=== PATIENT | male | born 1985 ===

== ENCOUNTER 2021-07-22 22:54 | Inpatient (IN) ==
[2021-07-22] MEDS ORDERED: Isovue-370 500 ML BOTTLE IVP ONE (23:13)
[2021-07-22] MEDS ORDERED: 0.9 % Sodium Chloride 1,000 ML IV ONE (23:13)
[2021-07-22] MEDS ORDERED: Ondansetron 4 MG/2 ML VIAL IVP ONE (23:13)
[2021-07-23 00:32] LABS: Alanine Aminotransferase 976 Units/L (7-52); Albumin 4.3 g/dL (3.5-5.7); Albumin/Globulin Ratio 1.4 (1.1-2.2); Alkaline Phosphatase 159 Units/L (34-104); Amylase 34 Units/L (29-103); Aspartate Amino Transferase 704 Units/L (13-39); BUN/Creatinine Ratio 11 (6-26); Bilirubin,Total 3.4 mg/dL (0.3-1.0); Blood Urea Nitrogen 10 mg/dL (6-20); Calcium 9.6 mg/dL (8.6-10.3); Carbon Dioxide 31 mEq/L (23-29); Chloride 101 mEq/L (98-107); Glucose 114 mg/dL (70-105); Lipase 25 Units/L (11-82); Osmolality,Calculated 286 (280-300); Potassium 3.4 mEq/L (3.5-5.1); Sodium 138 mEq/L (136-145); Total Protein 7.3 g/dL (6.4-8.9); eGFR For African Americans > 60 (> 60); eGFR For Non-African Americans > 60 (> 60)
[2021-07-23 00:33] LABS: Basophils % 1.2 %; Eosinophils # 0.1 K/mcL (0.0-0.6); Eosinophils % 2.1 %; Hematocrit 46.4 % (37.5-50.1); Hemoglobin 15.8 g/dL (12.9-16.9); Immature Granulocytes % 0.3 % (0-4); Lymphocytes # 0.8 K/mcL (0.6-4.6); Lymphocytes % 22.4 %; Mean Corpuscular HGB Conc 34.1 g/dL (31.6-35.5); Mean Corpuscular Hemoglobin 28.8 pg (28.0-33.3); Mean Corpuscular Volume 84.7 fL (83.0-100.0); Mean Platelet Volume 12.5 fL (9.4-12.4); Monocytes # 0.3 K/mcL (0.0-1.3); Monocytes % 9.7 %; Neutrophils # 2.2 K/mcL (1.6-8.9); Platelet Count 138 K/mcL (140-400); Red Blood Count 5.48 M/mcL (4.19-5.50); Red Cell Distribution Width 12.6 % (11.5-14.5); Segmented Neutrophils % 64.3 %; White Blood Count 3.4 K/mcL (4.3-11.1)
[2021-07-23] MEDS ORDERED: Piperacillin/Tazobactam 3.375 GM in 0.9 % Sodium Chloride Mini Bag 100 ML IVP ONE (01:28)
[2021-07-23] MEDS ORDERED: Ketorolac 30 MG/ML VIAL IVP ONE (01:28)
[2021-07-23 01:40] LABS: Bacteria,Urine Few per hpf (None-Few); Bilirubin,Urine Small (Negative); Blood,Urine Negative (Negative); Clarity,Urine Clear (Clear); Color,Urine Yellow (Yellow); Glucose,Urine (UA) Normal (Normal); Ketones,Urine Negative (Negative); Leukocyte Esterase,Urine Negative (Negative); Nitrite,Urine Negative (Negative); Protein,Urine 30 mg/dL (Neg-Trace); RBC,Urine 0-3 per hpf (0-3); Specific Gravity,Urine > 1.030 (1.010-1.025); Urobilinogen,Urine Normal (Normal); WBC,Urine 0-3 per hpf (0-3)
[2021-07-23 02:35] LABS: INR 1.2
[2021-07-23 02:38] LABS: Activated Partial Thrombo Time 30.9 Seconds (26.0-36.0)
[2021-07-23 03:26] LABS: Acetaminophen < 10 mcg/mL (10-20); Ethanol < 10 mg/dL (Less than 10); Salicylate < 2.5 mg/dL (15.0-30.0)
[2021-07-23] MEDS ORDERED: Melatonin 3 MG TABLET PO PRN (03:44)
[2021-07-23] MEDS ORDERED: Ondansetron 4 MG/2 ML VIAL IVP PRN (03:44)
[2021-07-23] MEDS ORDERED: Naloxone 0.4 MG/ML INJ IVP PRN (03:44)
[2021-07-23] MEDS ORDERED: Acetaminophen 325 MG TABLET PO PRN (03:44)
[2021-07-23] MEDS ORDERED: Dextrose 4 GM Chewable Tablets PO PRN ×2 (03:47)
[2021-07-23] MEDS ORDERED: Saliva Stimulant 44.3ml BOTTLE PO PRN (03:47)
[2021-07-23] MEDS ORDERED: D5% in Water 1,000 ML IVC PRN (03:47)
[2021-07-23] MEDS ORDERED: *HR* Dextrose 50 % in Water (Syg) 50 ML SYRINGE IVP PRN (03:47)
[2021-07-23] MEDS: Ringers Solution, Lactated 1,000 ML IVC SCH ×2 (05:28→19:56)
[2021-07-23 05:35] LABS: Basophils % 1.1 %; Eosinophils # 0.1 K/mcL (0.0-0.6); Hematocrit 43.9 % (37.5-50.1); Immature Granulocytes % 0.4 % (0-4); Lymphocytes # 0.9 K/mcL (0.6-4.6); Lymphocytes % 32.9 %; Mean Corpuscular HGB Conc 34.2 g/dL (31.6-35.5); Mean Corpuscular Hemoglobin 29.5 pg (28.0-33.3); Mean Corpuscular Volume 86.2 fL (83.0-100.0); Mean Platelet Volume 12.7 fL (9.4-12.4); Monocytes # 0.3 K/mcL (0.0-1.3); Monocytes % 9.4 %; Neutrophils # 1.5 K/mcL (1.6-8.9); Platelet Count 124 K/mcL (140-400); Red Blood Count 5.09 M/mcL (4.19-5.50); Red Cell Distribution Width 12.6 % (11.5-14.5); Segmented Neutrophils % 52.2 %; White Blood Count 2.8 K/mcL (4.3-11.1)
[2021-07-23] MEDS ORDERED: *HR* LORazepam 0.5 MG TABLET PO PRN (05:38)
[2021-07-23 05:39] LABS: INR 1.2; Prothrombin Time 12.9 Seconds (9.4-12.1)
[2021-07-23 05:42] LABS: Activated Partial Thrombo Time 34.1 Seconds (26.0-36.0)
[2021-07-23 06:00] LABS: Alanine Aminotransferase 819 Units/L (7-52); Albumin/Globulin Ratio 1.6 (1.1-2.2); Alkaline Phosphatase 155 Units/L (34-104); Aspartate Amino Transferase 485 Units/L (13-39); BUN/Creatinine Ratio 10 (6-26); Bilirubin,Direct 1.9 mg/dL (0.0-0.2); Bilirubin,Indirect 1.2 mg/dL (0.0-1.0); Bilirubin,Total 3.1 mg/dL (0.3-1.0); Blood Urea Nitrogen 10 mg/dL (6-20); Calcium 9.2 mg/dL (8.6-10.3); Carbon Dioxide 30 mEq/L (23-29); Chloride 104 mEq/L (98-107); Chol/HDL Ratio 3.4 (0-4.9); Cholesterol 158 mg/dL (< 200); Globulin 2.5 g/dL (2.4-3.5); Glucose 89 mg/dL (70-105); HDL Cholesterol 46 mg/dL (40-59); LDL Cholesterol,Calculated 95 mg/dL (< 100); Osmolality,Calculated 285 (280-300); Phosphorous 4.4 mg/dL (2.7-4.5); Potassium 3.8 mEq/L (3.5-5.1); Sodium 138 mEq/L (136-145); Total Protein 6.5 g/dL (6.4-8.9); Triglycerides 83 mg/dL (< 150); eGFR For African Americans > 60 (> 60); eGFR For Non-African Americans > 60 (> 60)
[2021-07-23 07:08] LABS: Alanine Aminotransferase 800 Units/L (7-52); Albumin 3.9 g/dL (3.5-5.7); Albumin/Globulin Ratio 1.6 (1.1-2.2); Alkaline Phosphatase 154 Units/L (34-104); Aspartate Amino Transferase 443 Units/L (13-39); BUN/Creatinine Ratio 10 (6-26); Bilirubin,Total 2.6 mg/dL (0.3-1.0); Blood Urea Nitrogen 10 mg/dL (6-20); Carbon Dioxide 30 mEq/L (23-29); Chloride 104 mEq/L (98-107); Globulin 2.4 g/dL (2.4-3.5); Glucose 95 mg/dL (70-105); Osmolality,Calculated 285 (280-300); Potassium 3.8 mEq/L (3.5-5.1); Sodium 138 mEq/L (136-145); Total Protein 6.3 g/dL (6.4-8.9); eGFR For African Americans > 60 (> 60); eGFR For Non-African Americans > 60 (> 60)
[2021-07-23 07:53] LABS: Hepatitis B Surface Antigen Nonreactive (Nonreactive)
[2021-07-23 08:22] LABS: Hepatitis A Antibody IgM Nonreactive (Nonreactive); Hepatitis B Core IgM Nonreactive (Nonreactive); Hepatitis C Virus Antibody Nonreactive (Nonreactive)
[2021-07-23] MEDS: Pantoprazole 40 MG VIAL IVP SCH (10:09)
[2021-07-23] MEDS: Piperacillin/Tazobactam 3.375 GM in 0.9 % Sodium Chloride Mini Bag 100 ML IVPB SCH ×2 (10:09→18:37)
[2021-07-23] MEDS ORDERED: Ibuprofen 600 MG TABLET PO PRN (11:30)
[2021-07-24] MEDS: Piperacillin/Tazobactam 3.375 GM in 0.9 % Sodium Chloride Mini Bag 100 ML IVPB SCH ×3 (00:12→17:34)
[2021-07-24 04:38] LABS: Hemoglobin 14.8 g/dL (12.9-16.9); Immature Granulocytes % 0.3 % (0-4); Lymphocytes % 36.4 %; Mean Corpuscular HGB Conc 32.2 g/dL (31.6-35.5); Mean Corpuscular Hemoglobin 28.4 pg (28.0-33.3); Mean Corpuscular Volume 88.1 fL (83.0-100.0); Mean Platelet Volume 12.8 fL (9.4-12.4); Monocytes % 7.3 %; Platelet Count 119 K/mcL (140-400); Red Blood Count 5.22 M/mcL (4.19-5.50); Red Cell Distribution Width 12.9 % (11.5-14.5); Segmented Neutrophils % 48.6 %; White Blood Count 3.4 K/mcL (4.3-11.1)
[2021-07-24 04:39] LABS: Basophils % 1.2 %; Eosinophils # 0.2 K/mcL (0.0-0.6); Eosinophils % 6.2 %; INR 1.2; Lymphocytes # 1.2 K/mcL (0.6-4.6); Monocytes # 0.3 K/mcL (0.0-1.3); Neutrophils # 1.7 K/mcL (1.6-8.9)
[2021-07-24 05:03] LABS: BUN/Creatinine Ratio 7 (6-26); Blood Urea Nitrogen 6 mg/dL (6-20); Calcium 9.1 mg/dL (8.6-10.3); Carbon Dioxide 24 mEq/L (23-29); Chloride 107 mEq/L (98-107); Glucose 84 mg/dL (70-105); Osmolality,Calculated 283 (280-300); Potassium 3.9 mEq/L (3.5-5.1); Sodium 138 mEq/L (136-145); eGFR For African Americans > 60 (> 60); eGFR For Non-African Americans > 60 (> 60)
[2021-07-24 05:16] LABS: Albumin 3.9 g/dL (3.5-5.7); Albumin/Globulin Ratio 1.6 (1.1-2.2); Bilirubin,Direct 0.3 mg/dL (0.0-0.2); Bilirubin,Indirect 0.7 mg/dL (0.0-1.0); Globulin 2.5 g/dL (2.4-3.5); Total Protein 6.4 g/dL (6.4-8.9)
[2021-07-24] MEDS: Pantoprazole 40 MG VIAL IVP SCH (08:39)
[2021-07-24 10:09] LABS: % Iron Saturation 23 % (20-55); Iron 69 mcg/dL (65-175); Transferrin 210 mg/dL (203-362)
[2021-07-24 10:21] LABS: Ferritin 214 ng/mL (20-250)
[2021-07-24] MEDS: Ringers Solution, Lactated 1,000 ML IVC SCH (12:41)
[2021-07-24] MEDS ORDERED: *HR* Succinylcholine 200 MG/10 ML VIAL IVP ONE (15:01)
[2021-07-24] MEDS ORDERED: Ondansetron 4 MG/2 ML VIAL ONE (15:01)
[2021-07-24] MEDS ORDERED: Lidocaine -MPF 4% 5 ML AMPUL ONE (15:01)
[2021-07-24] MEDS ORDERED: *HR* Midazolam HCl 2 MG/2 ML VIAL ONE (15:02)
[2021-07-24] MEDS ORDERED: *HR* FentaNYL (PF) 100 MCG/2 ML VIAL ONE (15:02)
[2021-07-24] MEDS ORDERED: *HR* Propofol 200 MG/20 ML VIAL IVP ONE (15:02)
[2021-07-24] MEDS ORDERED: Menthol 1 EACH LOZENGE MM ONE (17:15)
[2021-07-25] MEDS: Ringers Solution, Lactated 1,000 ML IVC SCH (01:18)
[2021-07-25] MEDS: Piperacillin/Tazobactam 3.375 GM in 0.9 % Sodium Chloride Mini Bag 100 ML IVPB SCH ×2 (01:24→11:13)
[2021-07-25 03:20] LABS: Basophils % 0.2 %; Hematocrit 41.4 % (37.5-50.1); Hemoglobin 14.1 g/dL (12.9-16.9); Immature Granulocytes % 0.2 % (0-4); Lymphocytes # 0.6 K/mcL (0.6-4.6); Mean Corpuscular HGB Conc 34.1 g/dL (31.6-35.5); Mean Corpuscular Hemoglobin 29.4 pg (28.0-33.3); Mean Corpuscular Volume 86.4 fL (83.0-100.0); Mean Platelet Volume 12.2 fL (9.4-12.4); Monocytes # 0.2 K/mcL (0.0-1.3); Monocytes % 4.3 %; Neutrophils # 4.2 K/mcL (1.6-8.9); Platelet Count 117 K/mcL (140-400); Red Blood Count 4.79 M/mcL (4.19-5.50); Red Cell Distribution Width 12.5 % (11.5-14.5); Segmented Neutrophils % 83.3 %; White Blood Count 5.1 K/mcL (4.3-11.1)
[2021-07-25 03:21] LABS: Alanine Aminotransferase 359 Units/L (7-52); Albumin 3.8 g/dL (3.5-5.7); Albumin/Globulin Ratio 1.5 (1.1-2.2); Alkaline Phosphatase 120 Units/L (34-104); Aspartate Amino Transferase 68 Units/L (13-39); BUN/Creatinine Ratio 7 (6-26); Bilirubin,Direct 0.1 mg/dL (0.0-0.2); Bilirubin,Indirect 0.5 mg/dL (0.0-1.0); Bilirubin,Total 0.6 mg/dL (0.3-1.0); Blood Urea Nitrogen 6 mg/dL (6-20); Carbon Dioxide 26 mEq/L (23-29); Chloride 104 mEq/L (98-107); Globulin 2.5 g/dL (2.4-3.5); Glucose 110 mg/dL (70-105); Osmolality,Calculated 280 (280-300); Potassium 3.9 mEq/L (3.5-5.1); Sodium 136 mEq/L (136-145); Total Protein 6.3 g/dL (6.4-8.9); eGFR For African Americans > 60 (> 60); eGFR For Non-African Americans > 60 (> 60)
[2021-07-25] MEDS ORDERED: *HR* FentaNYL (PF) 100 MCG/2 ML VIAL ONE ×2 (08:28→10:12)
[2021-07-25] MEDS ORDERED: *HR* Midazolam HCl 2 MG/2 ML VIAL ONE (08:29)
[2021-07-25] MEDS ORDERED: *HR* Propofol 200 MG/20 ML VIAL IVP ONE (08:29)
[2021-07-25] MEDS ORDERED: *HR* Rocuronium Bromide 50 MG/5 ML VIAL ONE (08:30)
[2021-07-25] MEDS ORDERED: Lidocaine -MPF 2% 2 ML VIAL ONE (08:30)
[2021-07-25] MEDS ORDERED: *HR* Succinylcholine 200 MG/10 ML VIAL IVP ONE (08:30)
[2021-07-25] MEDS: Pantoprazole 40 MG VIAL IVP SCH (09:00)
[2021-07-25] MEDS ORDERED: *HR* Meperidine 25 MG/ML SYRINGE IVP PRN (09:42)
[2021-07-25] MEDS ORDERED: Ondansetron 4 MG/2 ML VIAL IVP PRN ×2 (09:42→12:15)
[2021-07-25] MEDS ORDERED: Ondansetron 4 MG/2 ML VIAL ONE (10:33)
[2021-07-25] MEDS ORDERED: Sugammadex Sodium 200 MG/2 ML VIAL IV ONE (10:51)
[2021-07-25] MEDS: *HR* HYDROmorphone PF 0.5 MG/0.5 ML SYRINGE IVP PRN ×2 (11:23→11:37)
[2021-07-25] MEDS ORDERED: Ibuprofen 600 MG TABLET PO PRN (12:15)
[2021-07-25] MEDS ORDERED: Naloxone 0.4 MG/ML INJ IVP PRN (12:15)
[2021-07-25] MEDS ORDERED: Dextrose 4 GM Chewable Tablets PO PRN ×2 (12:15)
[2021-07-25] MEDS ORDERED: *HR* Dextrose 50 % in Water (Syg) 50 ML SYRINGE IVP PRN (12:15)
[2021-07-25] MEDS ORDERED: D5% in Water 1,000 ML IVC PRN (12:15)
[2021-07-25] MEDS ORDERED: Melatonin 3 MG TABLET PO PRN (12:15)
[2021-07-25] MEDS ORDERED: Saliva Stimulant 44.3ml BOTTLE PO PRN (12:15)
[2021-07-25] MEDS ORDERED: *HR* LORazepam 0.5 MG TABLET PO PRN (12:15)
[2021-07-25] MEDS ORDERED: Acetaminophen 325 MG TABLET PO PRN (12:15)
[2021-07-25 14:50] VITALS: BP 114/70; PULSE 58; TEMP 98.1; O2SAT 99
[2021-07-25] MEDS ORDERED: Piperacillin/Tazobactam 3.375 GM in 0.9 % Sodium Chloride Mini Bag 100 ML IVPB SCH (17:00)
[2021-07-26] MEDS ORDERED: *HR* Enoxaparin 40 MG/0.4 ML SYRINGE SQ SCH ×2 (06:00)
[2021-07-26] MEDS ORDERED: Pantoprazole 40 MG VIAL IVP SCH (09:00)
[2021-07-27 10:37] LABS: Smooth Muscle Ab Titer IgG 1:20 (<1:20)
[2021-07-27 10:44] LABS: ANA IgG by ELISA NONE DETECTED (None Detected)
== END 2021-07-25 18:10 | disposition home or self-care (01) | DRG 417 ==
LOC: EMEROOARM 22:54 → 3ANU 22:54 → SUATTDRO 07-23 02:42 → 3ANU 07-23 03:14
PROVIDERS: ADMIT Internal Medicine; ATTEND Internal Medicine